=== PATIENT | female | born 1975 | race Caucasian/White ===

== ENCOUNTER 2021-10-02 09:37 | Emergency (ER) | payer BC ==
[~2021-10-02] VITALS: Ht 172.7 cm; Wt 81.4 kg
[2021-10-02] MEDS ORDERED: HCTZ 25MG TAB25 MG PO (09:52)
[2021-10-02] MEDS ORDERED: HCTZ12.5TAB PO (09:52)
[2021-10-02] MEDS ORDERED: VITAMIN B125000 MCG PO (09:53)
[2021-10-02] MEDS ORDERED: FIORICET 325 MG1 TA1 PO ×2 (09:54)
[2021-10-02] MEDS ORDERED: XANAX 0.5MG0.5 MG PO (09:55)
[2021-10-02 10:45] LABS: HEMOGLOBIN 11.7 g/dl (12.5-16.0); MEAN CELL VOLUME 84 fl (80.0-100.0); MEAN CORPUSCULAR HEMOGLOBIN 28 pg (27-31); MEAN CORPUSCULAR HGB CONC 34 g/dl (33.0-37.0); MEAN PLATELET VOLUME 9.9 fl (7.4-10.4); PLATELET COUNT 395 K/mm3 (130-400); RED BLOOD COUNT 4.17 M/mm3 (4.10-5.30); REDCELL DISTRIBUTION WIDTH-CV 13.3 % (11.5-14.5)
[2021-10-02 10:48] LABS: HEMATOCRIT 34.9 % (37.0-47.0)
[2021-10-02 10:59] LABS: ALBUMIN 3.1 gm/dL (3.5-5.0); BILIRUBIN,TOTAL 0.5 mg/dL (0.2-1.2); CALCIUM 9.1 mg/dL (8.4-10.2); CREATININE, serum 0.76 mg/dL (0.57-1.11); POTASSIUM 3.5 mmol/L (3.5-4.5); TOTAL PROTEIN 7.6 gm/dL (6.2-8.1)
[2021-10-02 11:02] LABS: BAND 3 % (0-10); BASOPHIL 1 % (0-2); EOSINOPHIL 1 % (0-4); LYMPHOCYTE 8 % (20.0-51.0); NEUTROPHILS 82 % (42.0-75.2); PLATELET ESTIMATE NORMAL (NORMAL)
[2021-10-02 11:11] LABS: COLLECTION METHOD CLEAN CATCH
[2021-10-02 11:26] LABS: PH 9 (5-8); SQUAMOUS EPITHELIAL 0-2 /hpf (0-10); URINE APPEARANCE Clear (CLEAR/HAZY); URINE BACTERIA Moderate /hpf (NONE SEEN); URINE BILIRUBIN Negative (NEGATIVE); URINE BLOOD 3+ (NEGATIVE); URINE COLOR Yellow (YELLOW); URINE GLUCOSE Negative (NEGATIVE); URINE KETONE Trace (NEGATIVE); URINE LEUKOCYTE ESTERASE Negative (NEGATIVE); URINE NITRATE Negative (NEGATIVE); URINE PROTEIN(semi-quant) Negative (NEGATIVE); URINE UROBILINOGEN Negative (NEGATIVE)
[2021-10-02] MEDS ORDERED: CEPHALEXIN500 M1 PO (12:15)
[2021-10-02 12:36] VITALS: BP 111/76; PULSE 84; TEMP 98.2
== END 2021-10-02 12:36 | disposition home or self-care (01) ==
LOC: COL.ER 09:37
PROVIDERS: Nurse Practitioner Primary Care
DX: D72.829 Elevated white blood cell count, unspecified (principal); Z20.822 Contact with and (suspected) exposure to COVID-19
CPT/HCPCS: J0696; J1885; J7030; Q9967

== ENCOUNTER → 2021-10-14 | Outpatient (CLI) | payer BC ==
[~2021-10-14] VITALS: Ht 172.7 cm; Wt 80.8 kg
[~2021-10-14] MED LIST: CEPHALEXIN500 M1 PO; FIORICET 325 MG1 TA1 PO; HCTZ 25MG TAB25 MG PO; HCTZ12.5TAB PO; MOBIC 7.5MG7.5 MG PO; PRENATAL TABLET PO; VITAMIN B125000 MCG PO; XANAX 0.5MG0.5 MG PO
[2021-10-14 10:03] VITALS: BP 135/84; PULSE 78; TEMP 97.7
[2021-10-14 10:45] VITALS: BP 127/90; PULSE 76
[2021-10-14 11:00] VITALS: BP 122/84; PULSE 83
[2021-10-14 11:15] VITALS: BP 132/93; PULSE 87
== END ==
LOC: COL.RAD 09:30
DX: R22.42 Localized swelling, mass and lump, left lower limb (principal)
CPT/HCPCS: 32108

== ENCOUNTER → 2021-11-25 | Outpatient (CLI) | payer BC | LOC: COL.VAS 13:28 | DX: Z01.810 Encounter for preprocedural cardiovascular examination (principal); C49.9 Malignant neoplasm of connective and soft tissue, unspecified; I51.7 Cardiomegaly ==

== ENCOUNTER → 2021-11-26 | Outpatient (CLI) | payer BC | LOC: COL.LAB 10:20 | DX: Z20.822 Contact with and (suspected) exposure to COVID-19 (principal) ==

== ENCOUNTER → 2021-12-17 | Outpatient (CLI) | payer BC ==
[~2021-12-17] MED LIST changes: +CLARITIN 1010 MG/TAB PO; +NORCO 325 MG-101 TAB PO; +PHENERGAN 25 TA25 MG PO; +VOLTAREN SR25 MG/TAB PO; +ZOFRAN8 MG PO
== END ==
LOC: ZCOL.LAB 13:50
DX: Z20.822 Contact with and (suspected) exposure to COVID-19 (principal)

== ENCOUNTER 2021-12-20 15:00 | Outpatient (RCR) | payer BC ==
[2021-12-14 15:28] VITALS: BP 98/59; PULSE 104; TEMP 98.4
[2021-12-14 15:34] LABS: MEAN CELL VOLUME 81 fl (80.0-100.0); MEAN CORPUSCULAR HGB CONC 32 g/dl (33.0-37.0); PLATELET COUNT 575 K/mm3 (130-400); RED BLOOD COUNT 2.73 M/mm3 (4.10-5.30); REDCELL DISTRIBUTION WIDTH-CV 17.3 % (11.5-14.5)
[2021-12-14 15:43] LABS: HEMATOCRIT 22.2 % (37.0-47.0); HEMOGLOBIN 7.1 g/dl (12.5-16.0); MEAN CORPUSCULAR HEMOGLOBIN 26 pg (27-31)
[2021-12-14 15:50] LABS: ALBUMIN 2.2 gm/dL (3.5-5.0); BILIRUBIN,TOTAL 0.5 mg/dL (0.2-1.2); CREATININE, serum 0.71 mg/dL (0.57-1.11); TOTAL PROTEIN 6.4 gm/dL (6.2-8.1)
[2021-12-14 16:05] LABS: BAND 36 % (0-10); LYMPHOCYTE 3 % (20.0-51.0); METAMYELOCYTE 5 % (0-0); MYELOCYTE 10 % (0-0); NEUTROPHILS 41 % (42.0-75.2)
[2021-12-14 16:06] LABS: HYPOCHROMIA 1+; PLATELET ESTIMATE INCREASED (NORMAL)
[2021-12-14 16:07] LABS: ANISOCYTOSIS 1+
[~2021-12-20] VITALS: Ht 172.7 cm; Wt 74.9 kg
--- NOTE | 2021-12-20 15:40 | NUR ---
I called pt to remind her of appointment for dressing change. Pt reported was at [facility] to be admitted for chemo. I reminded pt that we would need new orders from her physician for care of her central line and weekly labs. Pt verbalized understanding.
== END 2021-12-20 15:42 | disposition still patient (30) ==
LOC: EUO 15:00
PROVIDERS: Student in an Organized Health Care Education/Training Program
DX: C49.9 Malignant neoplasm of connective and soft tissue, unspecified (principal); I71.9 Aortic aneurysm of unspecified site, without rupture
CPT/HCPCS: J1644

== ENCOUNTER 2022-01-03 15:00 | Outpatient (RCR) | payer BC ==
[2021-12-27 11:41] VITALS: BP 97/67; PULSE 89; TEMP 99.1
[2021-12-27 12:00] LABS: MEAN CELL VOLUME 87 fl (80.0-100.0); MEAN CORPUSCULAR HGB CONC 31 g/dl (33.0-37.0); MEAN PLATELET VOLUME 8.4 fl (7.4-10.4); PLATELET COUNT 678 K/mm3 (130-400); RED BLOOD COUNT 2.86 M/mm3 (4.10-5.30); REDCELL DISTRIBUTION WIDTH-CV 19.9 % (11.5-14.5)
[2021-12-27 12:07] LABS: HEMATOCRIT 24.9 % (37.0-47.0); HEMOGLOBIN 7.7 g/dl (12.5-16.0); MEAN CORPUSCULAR HEMOGLOBIN 27 pg (27-31)
[2021-12-27 12:10] LABS: BILIRUBIN,TOTAL 0.4 mg/dL (0.2-1.2); CALCIUM 8.9 mg/dL (8.4-10.2); CREATININE, serum 0.64 mg/dL (0.57-1.11); POTASSIUM 3.5 mmol/L (3.5-4.5); TOTAL PROTEIN 6.6 gm/dL (6.2-8.1)
[2021-12-27 12:39] LABS: ANISOCYTOSIS 1+; BAND 27 % (0-10); EOSINOPHIL 8 % (0-4); LYMPHOCYTE 4 % (20.0-51.0); METAMYELOCYTE 8 % (0-0); MYELOCYTE 1 % (0-0); NEUTROPHILS 47 % (42.0-75.2); NUCLEATED RED BLOOD CELL 1 (0-6); PLATELET ESTIMATE INCREASED (NORMAL)
[2021-12-28] VITALS (11 sets, daily range): BP systolic 100–194; BP diastolic 66–85; PULSE 68–86; TEMP 97.7–98.3
--- NOTE | 2021-12-28 17:53 | NUR ---
BLOOD TRANSFUSION COMPLETED AND IV FLUSHED PER PROTOCOL, INFORMATION GIVEN ON BLOOD TRANSFUSIONS, PT DISCHARGED VIA W/C TO CAR
[~2022-01-03] VITALS: Ht 172.7 cm; Wt 72.8 kg
[2022-01-03 15:36] LABS: HEMATOCRIT 31.5 % (37.0-47.0); MEAN CELL VOLUME 87 fl (80.0-100.0); MEAN CORPUSCULAR HEMOGLOBIN 28 pg (27-31); MEAN CORPUSCULAR HGB CONC 32 g/dl (33.0-37.0); MEAN PLATELET VOLUME 8.8 fl (7.4-10.4); PLATELET COUNT 326 K/mm3 (130-400); RED BLOOD COUNT 3.64 M/mm3 (4.10-5.30); REDCELL DISTRIBUTION WIDTH-CV 18.2 % (11.5-14.5)
[2022-01-03 15:44] VITALS: BP 114/75; PULSE 60; TEMP 98.1
[2022-01-03 15:55] LABS: ALBUMIN 2.7 gm/dL (3.5-5.0); BILIRUBIN,TOTAL 0.5 mg/dL (0.2-1.2); CREATININE, serum 0.66 mg/dL (0.57-1.11); POTASSIUM 3.8 mmol/L (3.5-4.5)
[2022-01-03 17:11] LABS: ANISOCYTOSIS 2+; BAND 8 % (0-10); EOSINOPHIL 20 % (0-4); LYMPHOCYTE 18 % (20.0-51.0); METAMYELOCYTE 1 % (0-0); NEUTROPHILS 49 % (42.0-75.2); NUCLEATED RED BLOOD CELL 1 (0-6); PLATELET ESTIMATE NORMAL (NORMAL)
[2022-01-03 17:12] LABS: HYPOCHROMIA 1+
[2022-01-24] MEDS ORDERED: B-12 500 MCG PO (11:46)
[2022-01-24] MEDS ORDERED: MAGNESIUM ELEM300 MG PO (11:47)
== END 2022-01-06 | disposition home or self-care (01) ==
LOC: EUO
PROVIDERS: Internal Medicine Hematology & Oncology; Student in an Organized Health Care Education/Training Program
DX: C49.9 Malignant neoplasm of connective and soft tissue, unspecified (principal)
CPT/HCPCS: J1644; J7050; P9016

== ENCOUNTER 2022-01-31 15:00 | Outpatient (RCR) | payer BC ==
[2022-01-11 15:29] LABS: HEMOGLOBIN 10.8 g/dl (12.5-16.0); MEAN CELL VOLUME 86 fl (80.0-100.0); MEAN CORPUSCULAR HEMOGLOBIN 28 pg (27-31); MEAN CORPUSCULAR HGB CONC 33 g/dl (33.0-37.0); MEAN PLATELET VOLUME 9.2 fl (7.4-10.4); PLATELET COUNT 390 K/mm3 (130-400); RED BLOOD COUNT 3.84 M/mm3 (4.10-5.30)
[2022-01-11 15:34] LABS: HEMATOCRIT 33.1 % (37.0-47.0)
[2022-01-11 15:36] VITALS: BP 123/83; PULSE 78; TEMP 97.9
[2022-01-11 16:14] LABS: BAND 13 % (0-10); EOSINOPHIL 13 % (0-4); HYPOCHROMIA 1+; LYMPHOCYTE 21 % (20.0-51.0); NEUTROPHILS 50 % (42.0-75.2); PLATELET ESTIMATE NORMAL (NORMAL)
[2022-01-17 15:30] VITALS: BP 104/69; PULSE 95; TEMP 98.3
[2022-01-17 15:47] LABS: MEAN CELL VOLUME 88 fl (80.0-100.0); MEAN CORPUSCULAR HGB CONC 31 g/dl (33.0-37.0); MEAN PLATELET VOLUME 9.1 fl (7.4-10.4); PLATELET COUNT 269 K/mm3 (130-400); RED BLOOD COUNT 3.58 M/mm3 (4.10-5.30); REDCELL DISTRIBUTION WIDTH-CV 17.3 % (11.5-14.5)
[2022-01-17 15:58] LABS: HEMATOCRIT 31.6 % (37.0-47.0); HEMOGLOBIN 9.9 g/dl (12.5-16.0); MEAN CORPUSCULAR HEMOGLOBIN 28 pg (27-31)
[2022-01-17 16:07] LABS: BAND 4 % (0-10); BASOPHIL 1 % (0-2); EOSINOPHIL 18 % (0-4); LYMPHOCYTE 32 % (20.0-51.0); NEUTROPHILS 38 % (42.0-75.2)
[2022-01-17 16:08] LABS: ANISOCYTOSIS 1+; PLATELET ESTIMATE NORMAL (NORMAL)
[2022-01-24 11:29] LABS: HEMOGLOBIN 11.2 g/dl (12.5-16.0); MEAN CELL VOLUME 88 fl (80.0-100.0); MEAN CORPUSCULAR HEMOGLOBIN 28 pg (27-31); MEAN CORPUSCULAR HGB CONC 32 g/dl (33.0-37.0); MEAN PLATELET VOLUME 9.1 fl (7.4-10.4); PLATELET COUNT 241 K/mm3 (130-400); RED BLOOD COUNT 3.98 M/mm3 (4.10-5.30); REDCELL DISTRIBUTION WIDTH-CV 16.5 % (11.5-14.5)
[2022-01-24 11:35] LABS: HEMATOCRIT 35.1 % (37.0-47.0)
[2022-01-24 11:46] LABS: ALBUMIN 3.5 gm/dL (3.5-5.0); BILIRUBIN,TOTAL 0.8 mg/dL (0.2-1.2); CALCIUM 9.5 mg/dL (8.4-10.2); CREATININE, serum 0.69 mg/dL (0.57-1.11); POTASSIUM 3.7 mmol/L (3.5-4.5); TOTAL PROTEIN 6.8 gm/dL (6.2-8.1)
--- NOTE | 2022-01-24 11:52 | NUR ---
Pt alert and oriented, resp reg and unlabored, resp 16. pt pink, warm and dry. heart rate auscultated regular. pt discharged with no c/o at this time.
[2022-01-24 12:06] LABS: ANISOCYTOSIS 1+; BAND 5 % (0-10); EOSINOPHIL 12 % (0-4); LYMPHOCYTE 19 % (20.0-51.0); NEUTROPHILS 58 % (42.0-75.2); PLATELET ESTIMATE NORMAL (NORMAL)
[~2022-01-31] VITALS: Ht 172.7 cm; Wt 72.8 kg
[~2022-01-31 15:00] MED LIST changes: +B-12 500 MCG PO; +MAGNESIUM ELEM300 MG PO
--- NOTE | 2022-01-31 16:49 | NUR ---
Pt contacted, states she had central line removed Monday and her specialist has no further orders for weekly labs for her. Account will be closed.
== END 2022-01-31 16:50 | disposition still patient (30) ==
LOC: EUO 15:00
PROVIDERS: Internal Medicine Medical Oncology
DX: C49.5 Malignant neoplasm of connective and soft tissue of pelvis (principal)
CPT/HCPCS: J1644

== ENCOUNTER → 2024-03-04 | Outpatient (CLI) | payer BC | LOC: COL.RAD 09:48 | DX: E04.0 Nontoxic diffuse goiter (principal) ==